=== PATIENT | female | born 1960 | race African-American/Black ===

== ENCOUNTER 2017-05-12 17:45 | Inpatient (IN) | payer MEDICARE, MEDICAID ==
[~2017-05-12] VITALS: Ht 167.6 cm; Wt 49.9 kg
[2017-05-12 21:11] LABS: EOSINOPHILS % 0.9 % (0.0-5.0); HEMATOCRIT. 36.9 % (36.0-48.0); HEMOGLOBIN. 12.1 g/dL (12.0-16.0); LYMPHOCYTES % 38.5 % (20.0-50.0); MEAN CORPUSCULAR HEMOGLOBIN 29.8 pg (28.0-32.0); MEAN CORPUSCULAR VOLUME 91.1 fL (81.0-99.0); MEAN PLATELET VOLUME 7.6 fl (7.4-10.4); NEUTROPHILS % 51.6 % (40.0-76.0); PLATELET 342 x1000/uL (130-400); RED BLOOD CELL COUNT 4.05 mill/uL (4.2-5.4)
[2017-05-12 21:19] LABS: CARBON DIOXIDE 30 mEq/L (21-32); CHLORIDE 106 mEq/L (98-107); PROTHROMBIN TIME 10.8 sec (9.4-11.6)
[2017-05-12 21:26] LABS: TROPONIN I < 0.02 ng/mL (0.00-0.04)
[2017-05-12] MEDS ORDERED: POTASSIUM CHLORIDE INJ 40 MEQ in DEXT 5% WATER 250 ML IV ONE (21:45)
[2017-05-12] MEDS ORDERED: POTASSIUM CHLORIDE 20MEQ TABLET SR PO ONE (21:45)
[2017-05-12] MEDS ORDERED: HYDRALAZINE 20MG/ML VIAL IV ONE (21:45)
[2017-05-12] MEDS ORDERED: KETOROLAC 30MG/ML VIAL IV ONE (23:45)
[2017-05-12 23:55] VITALS: BP 113/72
[2017-05-13] MEDS ORDERED: CLONIDINE 0.1MG TABLET PO PRN ×2 (02:15→17:30)
[2017-05-13] MEDS ORDERED: HYDROCODONE/ACETAMINOPHEN 5/325MG TABLET PO PRN (02:15)
[2017-05-13 04:00] VITALS: BP 100/57
[2017-05-13 08:00] VITALS: BP 105/68
[2017-05-13 08:50] LABS: BASOPHILS % 0.9 % (0.0-2.0); EOSINOPHILS % 0.7 % (0.0-5.0); HEMATOCRIT. 36.3 % (36.0-48.0); HEMOGLOBIN. 12.3 g/dL (12.0-16.0); LYMPHOCYTES % 43.1 % (20.0-50.0); MEAN CORPUSCULAR HEMOGLOBIN 30.9 pg (28.0-32.0); MEAN CORPUSCULAR VOLUME 91.6 fL (81.0-99.0); MEAN PLATELET VOLUME 8.2 fl (7.4-10.4); MONOCYTES % 7.1 % (2.0-8.0); NEUTROPHILS % 48.2 % (40.0-76.0); PLATELET 317 x1000/uL (130-400); RED BLOOD CELL COUNT 3.96 mill/uL (4.2-5.4); RED CELL DISTRIBUTION WIDTH 14.3 % (11.6-14.6)
[2017-05-13] MEDS ORDERED: ENOXAPARIN 40MG/0.4ML SYR SUBCUT SCH ×2 (09:00→17:30)
[2017-05-13 09:22] LABS: CARBON DIOXIDE 27 mEq/L (21-32); CHLORIDE 110 mEq/L (98-107)
[2017-05-13 10:00] LABS: *AMPHETAMINES SCREEN URINE NEGATIVE (NEGATIVE); *BARBITURATES SCREEN URINE NEGATIVE (NEGATIVE); *BENZODIAZEPINES SCREEN URINE NEGATIVE (NEGATIVE); *COCAINE SCREEN URINE PRESUMTIVE POSITIVE (NEGATIVE); CANNABINOID URINE SCREEN PRESUMTIVE POSITIVE (NEGATIVE); METHADONE URINE SCREEN NEGATIVE (NEGATIVE); OPIATES URINE SCREEN PRESUMTIVE POSITIVE (NEGATIVE); PHENCYCLIDINE URINE SCREEN NEGATIVE (NEGATIVE)
[2017-05-13 12:00] VITALS: BP 101/66
[2017-05-13 16:21] VITALS: BP 100/61
[2017-05-13] MEDS ORDERED: ONDANSETRON HCL 4MG/2ML VIAL IV PRN (17:30)
[2017-05-13 20:00] VITALS: BP_SYST 108; BP_SYST 117; BP_DIAS 55; BP_DIAS 78
[2017-05-13] MEDS: FLUTICASONE PROPIONATE 50MCG/SPRAY BOTTLE BOTHNSTRLS SCH (20:41)
[2017-05-13] MEDS: ACETAMINOPHEN 325MG TABLET PO PRN (20:43)
[2017-05-13] MEDS ORDERED: BISACODYL 5MG TABLET PO SCH (21:00)
[2017-05-13] MEDS ORDERED: LORAZEPAM 2MG/ML CPJ IM PRN (23:00)
[2017-05-13 23:20] LABS: CLARITY URINE CLEAR (CLEAR); COLOR URINE YELLOW (YELLOW); KETONES URINE TRACE (NEGATIVE); LEUKOCYTE ESTERASE URINE 1+ (NEGATIVE); NITRITE URINE NEGATIVE (NEGATIVE); OCCULT BLOOD URINE NEGATIVE (NEGATIVE); PH URINE 6.5 (4.5-8.0); PROTEIN URINE TRACE (NEGATIVE); SPECIFIC GRAVITY URINE 1.036 (1.005-1.030)
[2017-05-14 00:14] VITALS: BP 117/55
[2017-05-14] MEDS ORDERED: LORAZEPAM 2MG/ML CPJ IV PRN (03:00)
[2017-05-14 04:00] VITALS: BP 129/78
[2017-05-14 08:00] VITALS: BP 99/66
[2017-05-14] MEDS: FLUTICASONE PROPIONATE 50MCG/SPRAY BOTTLE BOTHNSTRLS SCH (10:26)
[2017-05-14] MEDS: ACETAMINOPHEN 325MG TABLET PO PRN (11:46)
[2017-05-14 11:53] VITALS: BP 105/66
[2017-05-14] MEDS ORDERED: LORAZEPAM 1MG TABLET PO PRN (23:30)
== END 2017-05-14 14:25 | disposition left against medical advice (07) | DRG 917 ==
LOC: ER 18:12 → 8WST 22:38 → ENRESERV 22:53
PROVIDERS: ADMIT Internal Medicine Nephrology; ATTEND Internal Medicine Nephrology
DX: T40.5X1A Poisoning by cocaine, accidental (unintentional), initial encounter (principal); E43 Unspecified severe protein-calorie malnutrition; I67.4 Hypertensive encephalopathy; Z68.1 Body mass index [BMI] 19.9 or less, adult; I16.0 Hypertensive urgency; F14.10 Cocaine abuse, uncomplicated; E87.6 Hypokalemia; F15.10 Other stimulant abuse, uncomplicated; F17.210 Nicotine dependence, cigarettes, uncomplicated; F12.90 Cannabis use, unspecified, uncomplicated; G89.29 Other chronic pain; M54.9 Dorsalgia, unspecified; Z53.21 Procedure and treatment not carried out due to patient leaving prior to being seen by health care provider; Y92.89 Other specified places as the place of occurrence of the external cause; Z91.19 Patient's noncompliance with other medical treatment and regimen; Z88.6 Allergy status to analgesic agent; Z88.0 Allergy status to penicillin
CPT/HCPCS: 36415; 70450; 71010; 80048; 80053; 80305; 81001; 84484; 85025; 85610; 93005; 96365; 96375; 99291; J0360; J1650; J1885; J2060; J3480; J7060

== ENCOUNTER 2018-01-02 10:39 | Emergency (ER) | payer MEDICARE, MEDICAID ==
[~2018-01-02] VITALS: Ht 162.6 cm; Wt 55.0 kg
[2018-01-02] MEDS ORDERED: IBUPROFEN 600MG TABLET PO STA (11:25)
[2018-01-02 12:51] LABS: BASOPHILS % 1.3 % (0.0-2.0); EOSINOPHILS % 1.1 % (0.0-5.0); HEMATOCRIT. 37.9 % (36.0-48.0); HEMOGLOBIN. 12.4 g/dL (12.0-16.0); LYMPHOCYTES % 36.7 % (20.0-50.0); MEAN CORPUSCULAR HEMOGLOBIN 30.3 pg (28.0-32.0); MEAN CORPUSCULAR VOLUME 92.6 fL (81.0-99.0); MEAN PLATELET VOLUME 7.2 fl (7.4-10.4); MONOCYTES % 5.5 % (2.0-8.0); NEUTROPHILS % 55.4 % (40.0-76.0); PLATELET 305 x1000/uL (130-400); RED CELL DISTRIBUTION WIDTH 14.8 % (11.6-14.6)
[2018-01-02 13:00] LABS: CHLORIDE 111 mEq/L (98-107)
[2018-01-02 14:34] VITALS: BP 122/80
== END 2018-01-02 15:17 | disposition home or self-care (01) ==
LOC: ER 10:39
DX: R42 Dizziness and giddiness (principal); R00.1 Bradycardia, unspecified; R07.89 Other chest pain; M54.9 Dorsalgia, unspecified; G40.909 Epilepsy, unspecified, not intractable, without status epilepticus; Z88.0 Allergy status to penicillin; Z88.6 Allergy status to analgesic agent
CPT/HCPCS: 36415; 71045; 80053; 85025; 93005; 99285

== ENCOUNTER 2018-08-28 18:18 | Emergency (ER) | payer MEDICARE, MEDICAID ==
[~2018-08-28] VITALS: Ht 160 cm; Wt 64.0 kg
[2018-08-28 19:35] LABS: BASOPHILS % 1.3 % (0.0-2.0); EOSINOPHILS % 0.8 % (0.0-5.0); HEMATOCRIT. 40.3 % (36.0-48.0); HEMOGLOBIN. 13.4 g/dL (12.0-16.0); LYMPHOCYTES % 44.6 % (20.0-50.0); MEAN CORPUSCULAR HEMOGLOBIN 30.9 pg (28.0-32.0); MEAN PLATELET VOLUME 7.4 fl (7.4-10.4); MONOCYTES % 4.9 % (2.0-8.0); NEUTROPHILS % 48.4 % (40.0-76.0); PLATELET 304 x1000/uL (130-400); RED BLOOD CELL COUNT 4.33 mill/uL (4.2-5.4); RED CELL DISTRIBUTION WIDTH 14.7 % (11.6-14.6)
[2018-08-28 19:38] LABS: CHLORIDE 109 mEq/L (98-107)
[2018-08-28 19:42] LABS: ETHANOL BLOOD < 10 mg/dL
[2018-08-28] MEDS ORDERED: LORAZEPAM 1MG TABLET PO ONE (21:00)
[2018-08-28] MEDS ORDERED: TETANUS, DIPHTHERIA, PERTUSSIS VAC/PF 0.5ML (>7YR OLD) IM ONE (21:00)
[2018-08-28 21:03] LABS: CLARITY URINE CLEAR (CLEAR); COLOR URINE YELLOW (YELLOW); KETONES URINE NEGATIVE (NEGATIVE); LEUKOCYTE ESTERASE URINE 1+ (NEGATIVE); NITRITE URINE NEGATIVE (NEGATIVE); OCCULT BLOOD URINE NEGATIVE (NEGATIVE); PH URINE 5.5 (4.5-8.0); PROTEIN URINE NEGATIVE (NEGATIVE); UROBILINOGEN URINE 0.2 E.U./dL (0.2-1.0)
[2018-08-28 21:11] LABS: *BARBITURATES SCREEN URINE NEGATIVE (NEGATIVE)
[2018-08-28 21:12] LABS: *AMPHETAMINES SCREEN URINE NEGATIVE (NEGATIVE); *BENZODIAZEPINES SCREEN URINE NEGATIVE (NEGATIVE); *COCAINE SCREEN URINE PRESUMTIVE POSITIVE (NEGATIVE); METHADONE URINE SCREEN NEGATIVE (NEGATIVE); OPIATES URINE SCREEN NEGATIVE (NEGATIVE); PHENCYCLIDINE URINE SCREEN NEGATIVE (NEGATIVE)
[2018-08-28 21:13] LABS: CANNABINOID URINE SCREEN NEGATIVE (NEGATIVE)
[2018-08-28] MEDS ORDERED: NITROFURANTOIN 100MG M/M CAPSULE PO ONE (21:45)
[2018-08-29 12:30] VITALS: BP 126/74
== END 2018-08-29 12:30 | disposition home or self-care (01) ==
LOC: ER 18:18
DX: F32.9 Major depressive disorder, single episode, unspecified (principal); N30.00 Acute cystitis without hematuria; R45.851 Suicidal ideations; G40.909 Epilepsy, unspecified, not intractable, without status epilepticus; F14.10 Cocaine abuse, uncomplicated; F17.210 Nicotine dependence, cigarettes, uncomplicated; Z88.0 Allergy status to penicillin; Z88.6 Allergy status to analgesic agent
CPT/HCPCS: 36415; 80305; 80307; 80320; 80329; 90471; 90715; 99284; G0480

== ENCOUNTER 2020-07-31 15:17 | Emergency (ER) | payer OTHER, MEDICAID ==
[~2020-07-31] VITALS: Ht 157.5 cm; Wt 60.0 kg
[2020-07-31] MEDS ORDERED: ONDANSETRON HCL 4MG/2ML INJ IV STA (15:51)
[2020-07-31] MEDS ORDERED: MORPHINE SULFATE 4 MG/ML CPJ (NOT FOR IM USE) IV STA (15:51)
[2020-07-31] MEDS ORDERED: SODIUM CHLORIDE 0.9% 1,000 ML IV ONE (16:00)
[2020-07-31 16:43] LABS: BASOPHILS % 0.6 % (0.0-2.0); CHLORIDE 111 mEq/L (98-107); EOSINOPHILS % 0.8 % (0.0-5.0); HEMATOCRIT. 38.3 % (36.0-48.0); HEMOGLOBIN. 12.4 g/dL (12.0-16.0); MEAN CORPUSCULAR HEMOGLOBIN 29.9 pg (28.0-32.0); MEAN CORPUSCULAR VOLUME 92.3 fL (81.0-99.0); MEAN PLATELET VOLUME 7.6 fl (7.4-10.4); MONOCYTES % 8.8 % (2.0-8.0); NEUTROPHILS % 57.8 % (40.0-76.0); PLATELET 299 x1000/uL (130-400); RED BLOOD CELL COUNT 4.14 mill/uL (4.2-5.4); RED CELL DISTRIBUTION WIDTH 14.6 % (11.6-14.6)
[2020-07-31 16:45] LABS: PROTHROMBIN TIME 10.8 sec (9.6-11.0)
[2020-07-31 16:58] LABS: CLARITY URINE CLEAR (CLEAR); COLOR URINE YELLOW (YELLOW); KETONES URINE NEGATIVE (NEGATIVE); LEUKOCYTE ESTERASE URINE NEGATIVE (NEGATIVE); NITRITE URINE NEGATIVE (NEGATIVE); OCCULT BLOOD URINE NEGATIVE (NEGATIVE); PH URINE 8.5 (4.5-8.0); PROTEIN URINE NEGATIVE (NEGATIVE)
[2020-07-31 17:19] LABS: *AMPHETAMINES SCREEN URINE NEGATIVE (NEGATIVE)
[2020-07-31 17:20] LABS: *BARBITURATES SCREEN URINE NEGATIVE (NEGATIVE); *BENZODIAZEPINES SCREEN URINE NEGATIVE (NEGATIVE); *COCAINE SCREEN URINE PRESUMTIVE POSITIVE (NEGATIVE); METHADONE URINE SCREEN NEGATIVE (NEGATIVE); OPIATES URINE SCREEN NEGATIVE (NEGATIVE)
[2020-07-31 17:21] LABS: CANNABINOID URINE SCREEN NEGATIVE (NEGATIVE); PHENCYCLIDINE URINE SCREEN NEGATIVE (NEGATIVE)
[2020-07-31] MEDS ORDERED: KETOROLAC 30MG/ML VIAL IV ONE (17:45)
[2020-07-31] MEDS ORDERED: CLONIDINE 0.2MG TABLET PO ONE (17:45)
[2020-07-31] MEDS ORDERED: IBUP-2028 MT (18:23)
[2020-07-31] MEDS ORDERED: HYDR-4346 MT (18:23)
[2020-07-31 18:37] VITALS: BP 150/78
== END 2020-07-31 18:39 | disposition home or self-care (01) ==
LOC: ER 15:17
DX: I10 Essential (primary) hypertension (principal); M48.02 Spinal stenosis, cervical region; Z20.822 Contact with and (suspected) exposure to COVID-19; F14.10 Cocaine abuse, uncomplicated; Z86.73 Personal history of transient ischemic attack (TIA), and cerebral infarction without residual deficits
CPT/HCPCS: 36415; 70450; 71045; 72125; 80053; 80305; 81003; 83605; 84145; 84484; 85025; 85610; 86140; 87040; 87086; 93005; 96361; 96374; 96375; 99285; C9803; J1885; J2270; J2405; J7030; U0003

== ENCOUNTER 2022-03-30 08:59 | Inpatient (IN) | payer OTHER ==
[~2022-03-30] VITALS: Ht 160 cm; Wt 74.8 kg
[~2022-03-30 08:59] MED LIST: HYDR-4346 MT; IBUP-2028 MT
[2022-03-30] MEDS ORDERED: LABETALOL 5MG/ML SYR 20 MG/4 ML SYRINGE IV ONE (09:45)
[2022-03-30] MEDS ORDERED: IOHEXOL-350 100 ML BOTTLE ONE ×2 (10:08→10:38)
[2022-03-30 10:14] LABS: CHLORIDE 101 mEq/L (98-107)
[2022-03-30 10:15] LABS: BASOPHILS % 0.6 % (0.0-2.0); EOSINOPHILS % 0.7 % (0.0-5.0); HEMATOCRIT. 42.3 % (36.0-48.0); HEMOGLOBIN. 14.1 g/dL (12.0-16.0); LYMPHOCYTES % 26.7 % (20.0-50.0); MEAN CORPUSCULAR HEMOGLOBIN 30.1 pg (28.0-32.0); MEAN CORPUSCULAR VOLUME 90.1 fL (81.0-99.0); MEAN PLATELET VOLUME 7.8 fl (7.4-10.4); PLATELET 394 x1000/uL (130-400)
[2022-03-30 10:19] LABS: CLARITY URINE CLEAR (CLEAR); COLOR URINE YELLOW (YELLOW); KETONES URINE 1+ (NEGATIVE); LEUKOCYTE ESTERASE URINE NEGATIVE (NEGATIVE); NITRITE URINE NEGATIVE (NEGATIVE); OCCULT BLOOD URINE NEGATIVE (NEGATIVE); PH URINE 6.5 (4.5-8.0); PROTEIN URINE NEGATIVE (NEGATIVE); SPECIFIC GRAVITY URINE 1.008 (1.005-1.030); UROBILINOGEN URINE 0.2 E.U./dL (0.2-1.0)
[2022-03-30 10:25] LABS: ETHANOL BLOOD < 10 mg/dL
[2022-03-30 10:56] LABS: *AMPHETAMINES SCREEN URINE NEGATIVE (NEGATIVE); *BARBITURATES SCREEN URINE NEGATIVE (NEGATIVE); *BENZODIAZEPINES SCREEN URINE NEGATIVE (NEGATIVE); *COCAINE SCREEN URINE PRESUMTIVE POSITIVE (NEGATIVE); CANNABINOID URINE SCREEN NEGATIVE (NEGATIVE); METHADONE URINE SCREEN NEGATIVE (NEGATIVE); OPIATES URINE SCREEN NEGATIVE (NEGATIVE); PHENCYCLIDINE URINE SCREEN NEGATIVE (NEGATIVE)
[2022-03-30] MEDS ORDERED: MORPHINE SULFATE 2 MG/ML CPJ (NOT FOR IM USE) IV NR (12:45)
[2022-03-30 13:23] VITALS: BP 159/89
[2022-03-30] MEDS ORDERED: ONDANSETRON HCL 4MG/2ML INJ IV PRN (15:00)
[2022-03-30] MEDS ORDERED: LORAZEPAM 2MG/ML CPJ IV PRN (15:00)
[2022-03-30] MEDS ORDERED: IPRATROPIUM/ALBUTEROL 0.5-3(2.5)MG/3ML NEB HHN SCH (15:00)
[2022-03-30] MEDS ORDERED: ACETAMINOPHEN 325MG TABLET PO PRN (15:00)
[2022-03-30 15:06] VITALS: BP 159/89
[2022-03-30 16:00] VITALS: BP 118/62
[2022-03-30] MEDS ORDERED: KCL 20MEQ/100ML PREMIX 100 ML IV NR (17:00)
[2022-03-30] MEDS: ENOXAPARIN 40MG/0.4ML SYR SUBCUT SCH (17:09)
[2022-03-30] MEDS ORDERED: HALOPERIDOL LACTATE 5MG/ML VIAL IM PRN (18:15)
[2022-03-30 20:00] VITALS: BP 102/56
[2022-03-30] MEDS ORDERED: POTASSIUM CHLORIDE 20MEQ TABLET SR PO NR (20:30)
[2022-03-30] MEDS: LEVETIRACETAM 250MG TABLET PO SCH (21:36)
[2022-03-30 23:39] VITALS: BP 106/50
[2022-03-31 03:59] VITALS: BP 93/52
[2022-03-31 08:00] VITALS: BP 92/53
[2022-03-31] MEDS: LEVETIRACETAM 250MG TABLET PO SCH (08:00)
[2022-03-31 11:40] VITALS: BP 104/70
[2022-03-31] MEDS: ENOXAPARIN 40MG/0.4ML SYR SUBCUT SCH (15:12)
[2022-03-31 15:41] VITALS: BP 90/63
[2022-03-31 20:00] VITALS: BP 100/60
[2022-03-31] MEDS: LEVETIRACETAM 500MG TABLET PO SCH (21:09)
[2022-04-01] VITALS (7 sets, daily range): BP systolic 99–120; BP diastolic 55–76
[2022-04-01] MEDS: LEVETIRACETAM 500MG TABLET PO SCH (11:16)
[2022-04-01 16:46] LABS: CHLORIDE 106 mEq/L (98-107)
[2022-04-01] MEDS ORDERED: KEPP500 PO (18:20)
== END 2022-04-01 18:50 | disposition home or self-care (01) | DRG 100 ==
LOC: ER 08:59 → EDBEDREQ 09:04 → 7WST 12:02 → EDBEDREQ 12:04 → EDBEDREQSVC 12:04 → EDBEDREQTM 12:04 → CANRESERV 13:01 → ENRESERV 13:01 → 8WST 13:19
PROVIDERS: ADMIT Internal Medicine; ATTEND Internal Medicine
PROC: 4A00X4Z Measurement of Central Nervous Electrical Activity, External Approach (ICD-10-PCS; principal; 2022-03-31)
DX: G40.909 Epilepsy, unspecified, not intractable, without status epilepticus (principal); G92.8 Other toxic encephalopathy; I10 Essential (primary) hypertension; E87.6 Hypokalemia; Z20.822 Contact with and (suspected) exposure to COVID-19; Z88.8 Allergy status to other drugs, medicaments and biological substances; Z88.0 Allergy status to penicillin; Z91.199 Patient's noncompliance with other medical treatment and regimen due to unspecified reason; Z59.01 Sheltered homelessness
CPT/HCPCS: 36415; 70496; 70498; 70551; 71045; 80053; 80305; 80320; 81003; 82553; 82962; 85025; 87426; 93005; 95816; 99285; J1630; J1650; J2060; J3480; J3490; Q9967; G0480